=== PATIENT | male | born 1945 | race Caucasian/White ===

== ENCOUNTER 2016-06-22 15:42 | Inpatient (IN) | payer MEDICARE, OTHER ==
[2016-06-22] MEDS ORDERED: NS 0.9% 1000 ML* 2,000 ML IV ONE (16:08)
[2016-06-22 16:28] LABS: Hematocrit 52 % (42-52); Hemoglobin 16.5 g/dl (14.0-18.0); Mean Corpuscular HGB Conc 32 g/dl (31-36); Mean Corpuscular Hemoglobin 30 pg (27-31); Mean Corpuscular Volume 94 fL (80-94); Mean Platelet Volume 11 um3 (7.4-10.4); Red Blood Count 5.54 10^6/ul (4.0-5.4); Red Cell Distribution Width 18 % (10.5-15); White Blood Count 10.9 10^3/ul (3.5-10.8)
[2016-06-22 16:29] LABS: Add Diff/Slide Review? Slide Review Added; Comments Flag Yes
[2016-06-22 16:31] LABS: FIO2 10
[2016-06-22] MEDS ORDERED: Cefepime(*) 2 GM in NS 0.9% 50 ML* 50 ML IVPB ONE (16:31)
[2016-06-22] MEDS ORDERED: Levofloxacin 750 MG IVPREMIX(* 750 MG/150 ML BAG IVPB ONE (16:32)
--- NOTE | 2016-06-22 16:33 | RAD ---
INDICATION: Altered mental status and congestive heart failure COMPARISON: Most recent comparison chest x-ray dated July 30, 2015 TECHNIQUE: Single AP portable view of the chest was obtained. FINDINGS: Image quality is compromised due to the relative inferiority of a portable chest x-ray. There has been interval worsening in the degree of cardiomegaly relative to the previous chest x-ray. There is calcified atherosclerosis overlying the arch of the aorta. There is been interval appearance of diffuse reticulonodular densities symmetrically overlying the bilateral lungs. There is bilateral costophrenic angle blunting. Overlying the mid-level right lung is an oval density that could represent focal pneumonia but more likely represents fluid in the minor fissure. Visualized bones are normal for the patient's age. IMPRESSION: The constellation of chest x-ray findings is most consistent with exacerbation of cardiogenic pulmonary edema with bibasilar pleural effusions and likely fluid in the right minor fissure. Alternative diagnoses include pneumonitis, ARDS or pneumonia.
[2016-06-22] MEDS ORDERED: NS 0.9% 50 ML* 100 ML ONE (16:34)
[2016-06-22 16:35] LABS: Urine Bacteria Absent (Absent); Urine Bilirubin Negative (Negative); Urine Glucose Negative (Negative); Urine Nitrite Negative (Negative)
[2016-06-22 16:36] LABS: PCO2 Arterial 49 mmHg (35-45)
[2016-06-22 16:50] LABS: Add Path Review? YES; Immature Granulocytes 3 % (0-9); Neutrophil % 88 % (38-83); Polychromasia 1+
[2016-06-22 16:51] LABS: Benzodiazepine Urine Screen None Detected (None Detect)
[2016-06-22 16:53] LABS: Ammonia < 10 mol/L (16-53)
[2016-06-22 16:59] LABS: AST 669 U/L (13-39); Albumin 2.5 g/dL (3.2-5.2); Alkaline Phosphatase 220 U/L (34-104); Anion Gap 16 mmol/L (2-11); BUN/Creatinine Ratio 47.8 (8-20); Blood Urea Nitrogen 120 mg/dL (6-24); CO2 Carbon Dioxide 21 mmol/L (22-32); Calcium 8.3 mg/dL (8.6-10.3); Chloride 107 mmol/L (101-111); Creatine Kinase 291 U/L (10-223); EGFR African American 32.9 (>60); EGFR Non-African American 25.6 (>60); Globulin 3.6 g/dL (2-4); Glucose 91 mg/dL (70-100); Magnesium 2.8 mg/dL (1.9-2.7); Potassium 5.5 mmol/L (3.5-5.0); Sodium 144 mmol/L (133-145); Total Protein 6.1 g/dL (6.4-8.9)
[2016-06-22 17:01] LABS: Acetaminophen < 15 mcg/mL; Salicylate < 2.50 mg/dL (<30)
--- NOTE | 2016-06-22 17:01 | RAD ---
Indication: Confusion. CT of the brain was performed without IV contrast. Ventricular structures are midline. No midline shift is noted. The extra-axial spaces are unremarkable. Motion artifact is noted in the posterior fossa. Periventricular lucency is noted consistent with chronic ischemic White matter change. Probable lacunar infarct in the right parietal lobe posteriorly is noted. When compared to previous exam of July 31, 2015 previous identified right sided subdural hematoma is no longer present. IMPRESSION: NO INTRACRANIAL MASS OR HEMORRHAGE. MOTION ARTIFACT LIMITS THE STUDY. CHRONIC ISCHEMIC WHITE MATTER CHANGE WITH EVIDENCE OF OLD LACUNAR INFARCTS.
[2016-06-22 17:05] LABS: TSH (Thyroid Stimulating Horm) 2.65 mcIU/mL (0.34-5.60)
[2016-06-22 17:13] LABS: ALT 775 U/L (7-52)
[2016-06-22 17:44] LABS: B Type Natriuretic Peptide 8068 pg/mL
[2016-06-22] MEDS ORDERED: Acetaminophen SUPP* 325 MG SUPP PR PRN (18:49)
[2016-06-22] MEDS ORDERED: Phytonadione INJ (Adult)* 10 MG/ML 1 ML AMP SUBCUT ONE (19:53)
--- NOTE | 2016-06-22 19:59 | ED ---
Fátima, DoctorEva, scribed for Terence Goodman MD on 06/22/16 at 1556 . Altered Mental Status - HPI Summary HPI Summary: 71 year old male brought to [facility] by EMS after found non-responsive by family members; last seen well 5 days ago. Pt had a subdural hematoma last July and presented with similar symptoms. Level 5 Caveat due to pt's altered mental status. - History Of Current Complaint Stated Complaint: AMS Time Seen by Provider: 06/22/16 15:50 Hx Obtained From: EMS Hx From Patient Unobtainable Due To: Altered Mental Status - level 5 caveat Onset/Duration: Unknown - Allergies/Home Medications Allergies/Adverse Reactions: Allergies Allergy/AdvReac Type Severity Reaction Status Date / Time No Known Allergies Allergy Verified 05/02/15 12:22 Home Medications: Home Medications Phenytoin CAP(*) [Dilantin CAP(*)] 100 mg PO TID 06/22/16 [History Confirmed ] PMH/Surg Hx/FS Hx/Imm Hx Endocrine/Hematology History: Reports: Hx Anticoagulant Therapy - ASA Denies: Hx Diabetes, Hx Anemia Cardiovascular History: Reports: Hx Aneurysm - AAA 3.6 IN SIZE FUSIFORM IN 2008 , Hx Hypercholesterolemia, Hx Hypertension, Hx Peripheral Vascular Disease, Other Cardiovascular Problems/Disorders - RIGHT ENDACARTOMY, CAROTID STENOSIS LEFT 100% BLOCKED Denies: Hx Pacemaker/ICD Musculoskeletal History: Reports: Hx Rheumatoid Arthritis, Other Musculoskeletal History - ra Sensory History: Denies: Hx Contacts or Glasses, Hx Hearing Aid Opthamlomology History: Denies: Hx Contacts or Glasses Neurological History: Reports: Hx Headaches, Hx Seizures, Hx Transient Ischemic Attacks (TIA) Psychiatric History: Denies: Hx Panic Disorder - Surgical History Surgery Procedure, Year, and Place: RIGHT ENDARDECTOMY 3 years ago. RIGHT HIP [id number] Hx Anesthesia Reactions: No - Immunization History Date of Tetanus Vaccine: Unk Date of Influenza Vaccine: None Infectious Disease History: Denies: Traveled Outside the [place] in Last 30 Days - Family History Known Family History: Positive: Unknown - due to level 5 caveat - Social History Lives: Alone Alcohol Use: None Substance Use Type: Reports: None Hx Tobacco Use: Yes Smoking Status (MU): Heavy Every Day Tobacco Smoker Type: Cigarettes Amount Used/How Often: 1/3 ppd Length of Time of Smoking/Using Tobacco: 50 years Have You Smoked in the Last Year: Yes Review of Systems - ROS Summary Review of Systems Summary: ROS limited due to level 5 caveat Negative: Fever All Other Systems Reviewed And Are Negative: No Physical Exam - Summary Physical Exam Summary: LIMITED DUE TO LEVEL 5 CAVEAT General appearance: ill appearing, moderate distress, cachectic HEENT: normocephalic, atraumatic, ears and nose without masses or lesions conjunctivae normal, pupils are equal, mucous membranes very dry Neck: symmetric without masses or tracheal deviation, no thyromegaly Chest: decreased breath sounds, no rhonchi or wheezes, intercostal retraction Cardiovascular: good color, warmth, and capillary refill in extremities (4+), bilateral edema in the feet Skin: no visible rashes, lesions, or ulcers, mottled skin Neurological/Psychiatric: non-responsive to commands Triage Information Reviewed: Yes Vital Signs On Initial Exam: Initial Vitals Temp Pulse Resp BP Pulse Ox 97 F 104 38 143/96 93 06/22/16 15:42 06/22/16 15:42 06/22/16 15:42 06/22/16 15:42 06/22/16 15:42 Vital Signs Reviewed: Yes Completion Of Physical Exam Limited Due To: Level 5 Diagnostics - Vital Signs Vital Signs Temp Pulse Resp BP Pulse Ox 06/22/16 18:00 96.4 F 94 17 129/79 100 06/22/16 17:30 96.6 F 94 20 111/62 100 06/22/16 17:10 96.8 F 95 22 100 06/22/16 17:00 133/78 06/22/16 16:42 97.0 F 20 06/22/16 16:31 96.8 F 96 28 148/88 93 06/22/16 16:12 95.7 F 97 20 87 06/22/16 16:11 141/80 06/22/16 15:42 97 F 104 38 143/96 93 - Laboratory Lab Results: (16:18) Troponin I - 0.60 (16:18) Lactic Acid - 2.1 Result Diagrams: 06/22/16 16:18 06/22/16 16:18 Lab Statement: Any lab studies that have been ordered have been reviewed, and results considered in the medical decision making process. - Radiology CXR Radiology Interpretation Completed By: Radiologist - IMPRESSION: The constellation of chest x-ray findings is most consistent with exacerbation of cardiogenic pulmonary edema with bibasilar pleural effusions and likely fluid in the right minor fissure. Alternative diagnoses include pneumonitis, ARDS or pneumonia. - CT Brain CT CT Interpretation Completed By: Radiologist - IMPRESSION: NO INTRACRANIAL MASS OR HEMORRHAGE. MOTION ARTIFACT LIMITS THE STUDY. CHRONIC ISCHEMIC WHITE MATTER CHANGE WITH EVIDENCE OF OLD LACUNAR INFARCTS. - EKG 16:05 EKG Rhythm: Sinus Tachycardia - 99 bpm EKG Interpretation: Deep T wave inversions in V4-V6, old anterior wall NM, left axis EKG Comparison: Other - Different from EKG taken on 07/29/15 (T-wave inversions are new) Re-Evaluation - Re-Evaluation First Eval Re-Evaluation Time: 16:42 Change: Improved Comment: Pt looks a little better, is slightly more alert and able to answer y/ n questions. Dr. Goodman reviewed pt's CXR and ABG, he is now being taken for a brain CT. Altered Mental Statu Course/Dx - Diagnoses Differential Diagnosis/HQI/PQRI: CVA, Hypoxia, Intracranial Bleed, Medication Reaction, Metabolic Disorder, Sepsis, Other - renal failure, mi, chf, dehydration, Discharge Diagnoses: Altered mental status, Pneumonia, Acute renal failure, Elevated troponin, Dehydration - Provider Notifications Discussed Care Of Patient With: 18:30 - Discussed pt care with Dr. Meyer ( Hospitalist). She agrees to admit pt. - Critical Care Time Critical Care Time: 30-74 min - 45 minutes critical care time Discharge - Discharge Plan Condition: Guarded Disposition: ADMITTED TO [facility] documentation as recorded by the Doctor mcclelland Tahera accurately reflects the service I personally performed and the decisions made by , Terence Goodman MD.
[2016-06-22] MEDS: NS 0.9% 1000 ML* 1,000 ML IV SCH (20:32)
--- NOTE | 2016-06-22 20:37 | RAD ---
Indication: Hepatitis, abdominal aortic aneurysm. Real-time sonography of the abdomen was performed. The liver is 14 cm in length. No focal lesions or intrahepatic ductal dilatation is noted. The left lobe is obscured by overlying gas. A small amount of ascites is noted. The gallbladder demonstrates echogenic material in the dependent portion which may represent nonshadowing calculi or echogenic sludge. No pericholecystic fluid or wall thickening is identified. Common duct measures 3.3 mm. Right kidney measures 8.8 x 3.3 x 4.3 cm with a calculus in the lower pole of the left kidney measuring 2 mm. The left kidney measures 10.0 x 4.8 x 4.9 cm. No hydronephrosis is noted in either kidney. There is limited evaluation of the pancreas. Aorta and inferior vena cava Aortic stent graft is in place. IMPRESSION: Sludge within the gallbladder. A small amount of perihepatic ascites is noted. Aortic stent graft is in place.
[2016-06-22 21:36] LABS: Troponin I 0.93 ng/mL (<0.04)
[2016-06-22 21:38] LABS: Phenytoin < 2.5 mcg/mL (10-20)
[2016-06-22] MEDS ORDERED: Heparin VIAL(*) 5000 UNITS/ML VIAL (FIVE THOUSAND) SUBCUT SCH (22:00)
[2016-06-22 23:25] LABS: Potassium 4.6 mmol/L (3.5-5.0)
--- NOTE | 2016-06-23 00:38 | HP ---
HISTORY AND PHYSICAL: DATE OF ADMISSION: 06/22/16 PRIMARY CARE PROVIDER: Fabio Del Rio MD CHIEF COMPLAINT: Unresponsive. HISTORY OF PRESENT ILLNESS: Mr. Olivo is a 71-year-old male with a history of hypertension, past history of CVAs, history of AAA, past history of subdural hematoma, and seizure disorder, following this who presents to the emergency room after being found unresponsive at home. The patient's sister lives in the same apartment building as the patient. She was away on vacation, but ordinarily check on him routinely. She set up to have another lady checking on the patient daily. Reportedly, the patient has been checked on a daily basis and while he reported not feeling well, he had been in his usual state of health. The patient's temporary caregiver supposedly had been pushing cosby, it was felt that he was dehydrated. This lady went to check on him on the day of admission and he was found not responding. There is a question of whether or not he was found on the floor or on the sofa. The patient in general does not move around well at home per his sister. He has, however, seen Dr. Del Rio most recently in January 2016. Supposedly at that time, he weighed 128 pounds down from 190 previously. I am unable to obtain any further history from the patient or from his sister. PAST MEDICAL HISTORY: 1. Dyslipidemia. 2. Hypertension. 3. Past history of CVA. 4. Tobacco abuse. 5. AAA. 6. History of subdural hematoma, 2016. 7. Seizure disorder following subdural hematoma. PAST SURGICAL HISTORY: 1. CEA. 2. History of pneumothorax. 3. Right hip fracture repair. MEDICATIONS: Are unknown. ALLERGIES: No known drug allergies. FAMILY HISTORY: Unobtainable from the patient. SOCIAL HISTORY: Unobtainable from the patient. REVIEW OF SYSTEMS: Unobtainable from the patient due to him being nonverbal at this time. PHYSICAL EXAMINATION GENERAL: The patient is a well developed, very cachectic, yellow-appearing male , lying in the stretcher, squirming around slightly, moving all 4 extremities, but nonverbal. VITAL SIGNS: Blood pressure 129/79, pulse 96, respirations 17, temp 96.4, and O2 sat 100% on OxyMask at 10 L per minute. HEENT: Pupils are round, extraocular muscles are intact, oropharynx is clear. He does have upper dentures and his oral mucosa is very dry. NECK: I do not appreciate any submandibular, cervical, or supraclavicular adenopathy. Thyroid is not enlarged. No thyroid nodules are noted. PULMONARY: There are coarse breath sounds in all lung somers. CARDIAC: Normal S1, S2. Regular rate and rhythm. I do not appreciate any murmurs. There is 2 to 3+ pitting edema of the bilateral ankles worse on the left compared to the right. ABDOMEN: Bowel sounds are present. Abdomen is scaphoid. He appears to be guarding on palpation of the abdomen in all quadrants. Though he is unable to tell me if it hurts. MUSCULOSKELETAL: The patient has discoloration of his fingers related to smoking. There may be some slight clubbing. There is no cyanosis. SKIN: Warm. It is dry. He has again discoloration of his fingers. He is jaundiced appearing. NEUROLOGIC: Cranial nerves II through XII are difficult to be evaluate though the patient appears to have full extraocular motion. 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 Sensation is unable to be tested. PSYCH: Unable to be tested. DIAGNOSTIC STUDIES/LAB DATA: WBC 10.9, hemoglobin 16.5, hematocrit 52, and platelets 51. INR 2.05. Sodium 144, potassium 5.5, chloride 107, CO2 21, BUN 120, creatinine 2.51, glucose 91, lactic acid 2.1, calcium 8.3, and magnesium 2.8. Bilirubin 5.2, AST 669, ALT 775, alk phos 220, and ammonia less than 10. CPK 291. Troponin 0.60. BNP 8068. Albumin 2.5. TSH 2.65. Urinalysis revealed specific gravity of 1.018, 2+ protein, 1+ blood, present squamous epithelial cells, absent bacteria, negative leukocyte esterase, and negative nitrites. Toxicology reveals urine drug screen to be negative, salicylate less than 2.5, and acetaminophen less than 15. AB.31/49/204. EKG reveals normal sinus rhythm with probable LVH strain pattern. This is, however, dramatically different from July 2015. CT brain no intracranial mass or hemorrhage. Motion artifact limits the study. There is chronic ischemic white matter changes evidenced, old lacunar infarcts. Chest x-ray: Constellation of chest x-ray finding is most consistent with exacerbation of cardiogenic pulmonary edema, bibasilar pleural effusions, and likely fluid in the right minor fissure. Alternative diagnosis include pneumonitis or pneumonia. ASSESSMENT AND PLAN: Mr. Olivo is a 71-year-old male with history of hypertension, past history of cerebrovascular accidents, tobacco abuse, abdominal aortic aneurysm, past history of subdural hematoma, and seizure disorder who presents to the emergency room after being found unresponsive at home and was found to have multisystem organ failure. 1. Altered mental status: The differential diagnosis for this is quite broad. Infectious encephalopathy is potential versus seizure versus cerebrovascular accident. The patient has reportedly improved in the emergency room from the point where he was initially obtunded to the point now where he is able to move around in the bed and when you call his name he looks at you and he can follow simple commands. The patient had a CT of the brain that did not reveal any acute findings. He does not appear to have any gross focal deficits at this point. Seizure is definitely in the differential as he has had a past history of seizure disorder; however, the patient has reportedly not filled his Dilantin since 2016 and it is unclear if this is discontinued or he is just not taking it. An EEG will be ordered and if he fails to improve further, perhaps a Neurology consultation will be useful to determine if an cadd technician should be called in over the weekend to have this done. An MRI can also be considered; however, at this point the patient is too squirming to have an MRI performed. 2. Abnormal chest x-ray: The differential is abnormal chest x-ray includes pneumonitis versus acute respiratory distress syndrome versus infection versus congestive heart failure. While the patient's BNP and chest x-ray appeared to be congestive heart failure, the patient appears to be total body fluid deplete. The patient will receive IV fluid hydration and his respiratory status will need to be monitored closely. He will also be treated with ceftriaxone and azithromycin for possible pneumonia. A followup chest x-ray in the next 1 to 2 days should be considered. 3. Elevated troponin: This could either represent demand ischemia related to his acute illness versus an acute event. It is possible that he had an acute myocardial infarction at some point in the last several days. Follow troponin has been ordered as is a followup EKG. The patient's EKG is different than prior with new ST depression and T-wave inversions in lateral leads; however, this does look like strain pattern. 4. Elevated BNP: Again this makes me believe the patient is in congestive heart failure; however, clinically he does not appear to be. The patient's BNP is quite elevated over 8000. A transthoracic echocardiogram has been ordered though this will not be obtained until this coming Saturday. 5. Acute renal failure: The patient's baseline creatine from 1 year ago is in the 0.8 to 1.15 range. His creatinine currently is 2.51. His BUN is also markedly elevated at 120. His stool occult blood will be obtained as it seems like quite a different between the BUN and the creatinine. The fractional excretion of sodium will be obtained to try to determine the cause of his renal failure. I suspect this is prerenal renal failure though acute tubular necrosis is a potential due to prolonged prerenal state. 6. Hyperkalemia: This is almost definitely secondary to his acute renal failure. The patient is unable to take Kayexalate by mouth. He is being hydrated. A followup electrolyte panel will be obtained this evening at 2200 hours to determine if his potassium has decreased further, if not consideration will need to be had for treating his hyperkalemia. 7. Lactic acidosis: Again I suspect this is secondary to dehydration. A followup lactic acid level will be obtained at 2200 hours. The patient in the emergency room received 1 L fluid though I will go ahead continue normal saline at 100 mL per hour for now though again his respiratory status will need to be monitored very closely due to potential of worsening respiratory status. 8. Hepatitis: The patient's bilirubin, AST, ALT, and alk phos are all elevated. A liver ultrasound has been ordered. It is unclear what has lead to his hepatitis. The patient does not appear to be hypotensive, therefore I do not suspect this to be true shock liver; however, I do question if it maybe related to poor perfusion in the setting of hypovolemia. This could be infectious. I will go ahead and send a hepatitis panel. The patient also has an elevated INR of 2.05 without clear indications to me that he has been on Coumadin. The patient will need followup INR levels. I will go ahead and give vitamin K subcutaneous x1 now. A followup INR will be obtained tomorrow morning. 9. Thrombocytopenia: This is new. The patient's platelet count in July 2015 was normal. This is substantial change. It is unclear if this maybe related to liver disease or some other process. His platelet count will need to be monitored closely. Perhaps an infectious etiology has suppressed his platelet formation. 10. Hypertension: At this point the patient's blood pressure is under fair control, not on any medications. I do not notice home medication list includes , this will just be monitored. 11. Dyslipidemia: For now the diagnosis is noted. Again it is unclear if he is on any medication for this. 12. History of seizure disorder: The patient reportedly have been taking Dilantin in 2016 though a note from the pharmacy text states that per the pharmacy this prescription has not been filled since 2016. 13. Tobacco abuse: The patient shows stigmata of chronic tobacco abuse with discoloration of the fingers. For now, I am going to hold on nicotine patch. 14. DVT prophylaxis: According to the adult Thrombosis Prophylaxis Risk Factor Assessment Guide, the patient has a total risk factor score of 4 making him high risk. The patient's INR is already over 2 and his platelet count is only 51,000. At this time, SCDs alone will be used as DVT prophylaxis. 15. Code status: Per the patient's sister, who, again is on vacation, is full code with a trial of intubation. The patient's daughter does live locally and I have asked the patient's sister to contact the daughter to come to the hospital to discuss his case further. 16. A previous health care proxy form was identified in the computer system. This indicates that Fabby Olivo is the primary health care proxy with Bryan Fowler being the secondary. Again, I have been able to speak to Bryan. I am hopeful that the patient's daughter is able to arrive to the hospital soon. TIME SEEN: Seventy-five minutes was spent admitting this patient. CC: Dr. Del Rio* [id number]/CPS #: [id number]
[2016-06-23 05:46] LABS: Hematocrit 45 % (42-52); Hemoglobin 14.2 g/dl (14.0-18.0); Mean Corpuscular HGB Conc 32 g/dl (31-36); Mean Corpuscular Hemoglobin 30 pg (27-31); Mean Corpuscular Volume 95 fL (80-94); Red Blood Count 4.72 10^6/ul (4.0-5.4); Red Cell Distribution Width 18 % (10.5-15); White Blood Count 8.8 10^3/ul (3.5-10.8)
[2016-06-23 05:59] LABS: Albumin 2.1 g/dL (3.2-5.2); BUN/Creatinine Ratio 54.8 (8-20); Calcium 8.1 mg/dL (8.6-10.3); EGFR African American 40.5 (>60); EGFR Non-African American 31.5 (>60); Globulin 3.2 g/dL (2-4); Potassium 4.4 mmol/L (3.5-5.0); Total Bilirubin 4.2 mg/dL (0.2-1.0); Total Protein 5.3 g/dL (6.4-8.9); Troponin I 1.96 ng/mL (<0.04)
[2016-06-23 06:01] LABS: Add Diff/Slide Review? Slide Review Added; Comments Flag Yes
[2016-06-23] MEDS: NS 0.9% 1000 ML* 1,000 ML IV SCH (07:15)
[2016-06-23 07:36] LABS: Urine Random Sodium < 18 mmol/L
[2016-06-23] MEDS ORDERED: Azithromycin IV(*) 500 MG in NS 0.9% 250 ML* 250 ML IVPB SCH (08:00)
[2016-06-23] MEDS ORDERED: cefTRIAXone VIAL(*) 1,000 MG in NS 0.9% 50 ML* 50 ML IVPB SCH (09:00)
--- NOTE | 2016-06-23 09:14 | PN ---
Subjective Date of Service: 06/23/16 Interval History: Patient admitted yesterday evening w/ subacute change in mental status, and multiple laboratory and imaging abnormalities. Overnight he has continued to be altered. He appears dypneic to nurses, despite normal oxygenation. He is NPO. Family has not visited. He cannot give any history. Family History: Unchanged from Admission Social History: Unchanged from Admission Past Medical History: Unchanged from Admission Objective Active Medications: Acetaminophen (Tylenol Supp*) 325 mg ME Q4H PRN PRN Reason: pain/fever Ceftriaxone Sodium 1,000 mg/ (Sodium Chloride) 50 mls @ 200 mls/hr IVPB DAILY FREDDIE Azithromycin 500 mg/ Sodium (Chloride) 250 mls @ 250 mls/hr IVPB Q24H FREDDIE Last Admin: 06/23/16 08:25 Dose: 250 mls/hr NS at 100 ml/hr Vital Signs 06/22/16 06/22/16 06/22/16 19:00 19:30 20:00 Temperature 35.8 C 35.9 C 35.9 C Pulse Rate 94 97 96 Respiratory 19 20 Rate Blood Pressure 140/80 136/84 (mmHg) O2 Sat by Pulse 98 99 99 Oximetry 06/22/16 06/22/16 06/23/16 20:43 23:20 03:16 Temperature 36.8 C 36.6 C Pulse Rate 98 96 99 Respiratory 20 20 20 Rate Blood Pressure 129/76 124/76 122/68 (mmHg) O2 Sat by Pulse 95 100 100 Oximetry 06/23/16 06/23/16 07:34 07:58 Temperature 35.9 C 36.5 C Pulse Rate 100 Respiratory 22 Rate Blood Pressure 115/66 (mmHg) O2 Sat by Pulse 99 Oximetry Oxygen Devices in Use Now: Venturi Mask Eyes: No Scleral Icterus Ears/Nose/Mouth/Throat: - - poor dentition Neck: Trachea Midline, No Thyroid Enlargement, Masses Respiratory: - - diminished, throughout, prolonged expiratory phase, no wheezes Cardiovascular: NL Sounds; No Murmurs; No JVD, RRR Abdominal: - - scaphoid, soft, tender RLQ, +BS, no masses Lymphatic: No Cervical Adenopathy Extremities: No Edema, - - Hands w/ PIP destruction ?RA Skin: No Rash or Ulcers Neurological: - - attempts to speak when spoken to, attempts to move arms to follow command, tracks with eyes Lines/Tubes/Other Access: Clean, Dry and Intact Peripheral IV Result Diagrams: 06/23/16 05:32 06/23/16 05:32 Additional Lab and Data: Laboratory Tests 06/22/16 06/22/16 06/22/16 16:18 16:30 21:03 INR (Anticoag Therapy) 2.05 H ABG pH 7.31 L ABG pCO2 49 H ABG pO2 204 H ABG HCO3 23.2 Lactic Acid Total Bilirubin AST ALT Alkaline Phosphatase Troponin I 0.93 H* 06/22/16 06/23/16 06/23/16 22:50 00:34 05:32 INR (Anticoag Therapy) 1.63 H ABG pH ABG pCO2 ABG pO2 ABG HCO3 Lactic Acid 1.8 Total Bilirubin AST ALT Alkaline Phosphatase Troponin I 1.46 H* 06/23/16 05:32 INR (Anticoag Therapy) ABG pH ABG pCO2 ABG pO2 ABG HCO3 Lactic Acid Total Bilirubin 4.20 H AST 453 H ALT 626 H Alkaline Phosphatase 169 H Troponin I 1.96 H* Microbiology and Other Data: BC X2 no growth Diagnostic Imaging: U/S gallbladder: sludge, ascites CXR: pulm edema, ?ARDS vs CHF EKG Data: NSR, LVH w/ repol abnormality Assess/Plan/Problems-Billing Assessment: 71 year old man with history of subdural, seizure disorder, vascular disease, AAA repair, admitted w/ altered mental status, elevated troponin, new thrombocytopenia, hepatitis, tachypnea. - Patient Problems (1) Subdural hematoma, post-traumatic Current Visit: No Status: Chronic Priority: Medium Code(s): S06.5X9A - TRAUM SUBDR HEM W LOC OF UNSP DURATION, INIT SNOMED Code(s): 70793028 Comment: Neuro: history of subdural, history of seizure disorder, new onset mental status changes. Differential includes non-convulsive status, stroke, alcohol withdrawal, septic emboli to brain. Will discuss with neurology, repeat head CT, consider EEG, MRI , though trying to follow commands, doubt seizure. Catatonia in differential. (2) Acute coronary syndrome Current Visit: Yes Status: Acute Priority: High Code(s): I24.9 - ACUTE ISCHEMIC HEART DISEASE, UNSPECIFIED SNOMED Code(s): 236709790 Comment: Card:Patient has contining elevation troponin, and altered EKG, LVH , no STEMI. May have demand ischemia, part of sepsis. Will have echo tomorrow, suspect cor pulmonale due to known lung disease, elevated BNP. (3) COPD (chronic obstructive pulmonary disease) Current Visit: Yes Status: Chronic Priority: Medium Code(s): J44.9 - CHRONIC OBSTRUCTIVE PULMONARY DISEASE, UNSPECIFIED SNOMED Code(s): 85484857 Comment: Resp: hypercarbic resp failure possible cause of altered MS. Will recheck ABG. Discussed case with respiratory therapy, considering Atrovent Nebs. Continue O2 supplementation. CXR concerning for early ARDS, clinically patient does not have L-sided CHF. (4) Sepsis Current Visit: Yes Status: Acute Priority: High Comment: ID:Patient met SIRS critera, has multi-organ dysfunction (liver, lungs, heart, heme, kidneys) Currently on IV NS, ceftriaxone, azithromycin. Differential includes endocarditis, w/ septic emboli to brain. Follow blood and urine cultures, and TTE tomorrow. (5) Acute kidney injury Current Visit: Yes Status: Acute Priority: Medium Code(s): N17.9 - ACUTE KIDNEY FAILURE, UNSPECIFIED SNOMED Code(s): 92901735 Comment: Renal: Patient had creatinine well above baseline on admission. This has improved w/ IV normal saline. Will continue crystalloid resucitation. (6) DIC (disseminated intravascular coagulation) Current Visit: Yes Status: Acute Priority: High Code(s): D65 - DISSEMINATED INTRAVASCULAR COAGULATION SNOMED Code(s): 93373046 Comment: Heme: patient was hemoconcentrated on admission, this has improved. New thrombocytopenia and elevated PT/INR concerning for DIC. Will check DIC screen. WBC elevation has resolved. (7) Acute acalculous cholecystitis Current Visit: Yes Status: Acute Priority: High Code(s): K81.0 - ACUTE CHOLECYSTITIS SNOMED Code(s): 87967233 Comment: GI: Patient has sludge in GB, some ascites. Also has long-term weight loss. Pancreatitis can mimic sepsis, and since Lactate normalized, this is more likely. Will check lipase. Patient has tender abdomen, sepsis, no clear source, will CT abdomen/pelvis. Transaminitis trending down, will repeat tomorrow (8) Hypernatremia Current Visit: Yes Status: Acute Priority: High Code(s): E87.0 - HYPEROSMOLALITY AND HYPERNATREMIA SNOMED Code(s): 77586043 Comment: Fluid/electrolytes: Patient developing hypernatremia, will change to D5 1/2NS, correct free water deficit. (9) Rheumatoid arthritis Current Visit: Yes Status: Acute Priority: Medium Code(s): M06.9 - RHEUMATOID ARTHRITIS, UNSPECIFIED SNOMED Code(s): 27221770 Comment: Rheum: patient has elevated RF in past, clear deformities on exam of hands. Will check ESR, as polymyalgia can present with wasting and altered mental status. Status and Disposition: Patient may require transfer to ICU if ARDS develops, or requires BiPAP for hypercarbic resp failure.
[2016-06-23] MEDS: D5W 1/2 NS 1000 ML BAG* 1,000 ML IV SCH ×3 (09:33→19:14)
[2016-06-23 09:37] LABS: PCO2 Arterial 58 mmHg (35-45)
[2016-06-23 09:58] LABS: Fibrinogen 95 mg/dL (110.8-404.3)
[2016-06-23 10:03] LABS: Schistocytes PRESENT
--- NOTE | 2016-06-23 11:14 | RAD ---
CLINICAL HISTORY: Right lower quadrant tenderness, sepsis COMPARISON: August 04, 2015 TECHNIQUE: Multiple contiguous axial CT scans were obtained of the abdomen and pelvis, without intravenous contrast enhancement. Coronal and sagittal multiplanar reformations are submitted for review. Oral contrast was not administered. FINDINGS: The study is limited by the lack of intravenous contrast. This limits evaluation of the solid organs and vasculature. LUNG BASES: There are small bilateral effusions with bibasilar consolidation. There is cardiomegaly. Pleural calcification is noted on the right. LIVER: The liver is normal in shape, size, contour, and attenuation. BILE DUCTS: There is no intrahepatic or extrahepatic biliary dilatation. GALLBLADDER: The gallbladder is normal, without pericholecystic inflammatory change. PANCREAS: The pancreas is normal, without mass or ductal dilatation. SPLEEN: Normal in size and appearance. UPPER GI TRACT: Evaluation of the gastrointestinal tract is limited by incomplete gastric distention. The upper GI tract is unremarkable. SMALL BOWEL AND MESENTERY: The small bowel is normal in contour, course, and caliber. There is no obstruction or dilatation. COLON: There are multiple diverticula of the sigmoid colon. There is no pericolonic inflammatory change. The appendix is not clearly visualized. ADRENALS: Normal bilaterally. KIDNEYS: The kidneys are normal in shape, size, contour, and axis. There is no hydronephrosis or nephrolithiasis. BLADDER: The bladder is collapsed rounded Perez catheter. PELVIC ORGANS: Evaluation of the pelvic organs is limited by streak artifact from a right hip prosthesis. AORTA: There is atherosclerosis of the abdominal aorta. The patient is status post aortic stent graft. IVC: Unremarkable LYMPH NODES: There is no lymphadenopathy by size criteria. ABDOMINAL WALL: There is no evidence for abdominal wall hernia. BONES AND SOFT TISSUES: Mild degenerative changes are noted. The patient is status post right hip arthroplasty. OTHER: There is a trace amount of ascites. IMPRESSION: 1. BIBASILAR CONSOLIDATION WITH SMALL BILATERAL PLEURAL EFFUSIONS. 2. HEPATOMEGALY. 3. DIVERTICULOSIS. 4. TRACE AMOUNT OF ASCITES
--- NOTE | 2016-06-23 11:18 | RAD ---
HISTORY: Altered mental status COMPARISONS: June 22, 2016 TECHNIQUE: Multiple contiguous axial CT scans were obtained of the head without intravenous contrast. FINDINGS: HEMORRHAGE/INFARCT: There is no hemorrhage or acute infarct. MASSES/SHIFT: There is no mass or shift. EXTRA-AXIAL SPACES: There are no extra-axial fluid collections. SULCI AND VENTRICLES: The sulci and ventricles are normal in size and position for the patient's stated age. CEREBRUM: There is hypoattenuation of the periventricular and subcortical white matter. There is a chronic lacunar infarct of the right davidson radiata BRAINSTEM: There are no focal parenchymal abnormalities. CEREBELLUM: There are no focal parenchymal abnormalities. VESSELS: The vessels are grossly normal. PARANASAL SINUSES: The paranasal sinuses are clear. ORBITS: The orbits are unremarkable. BONES AND SOFT TISSUE: No bone or soft tissue abnormalities are noted. OTHER: None IMPRESSION: NO ACUTE INTRACRANIAL PATHOLOGY. CHRONIC SMALL VESSEL ISCHEMIC CHANGES
[2016-06-23 16:08] VITALS: BP 113/58
--- NOTE | 2016-06-23 17:02 | CONSULT ---
Consult Consult: CRITICAL CARE MEDICINE DATE: 06/23/16 TIME: 1530 REFERRING PROVIDER: Raz REASON/CHIEF COMPLAINT: MSOF HISTORY OF PRESENT ILLNESS: 71 M admitted yesterday with confusion and "unresponsive" at home. Following some commands on admission. Considerable weight lost noted. Dx and supportive care. Non-improving status on medical floor today and ICU consulted given msof and concern for dic. History otherwise limited as he lives alone. Family states he was at the best he has been about 3 weeks ago. REVIEW OF SYSTEMS: As per HPI. Limited sec to acuity PAST MEDICAL HISTORY: As per HPI. MEDICATIONS: Reviewed. ALLERGIES: Reviewed. SOCIAL HISTORY: Reviewed. FAMILY HISTORY: Noncontributory at present. PHYSICAL EXAM: thin, wasting Vital Signs: Reviewed. Neurologic: obtunded. response to stimuli with eye opening. not following commands. HEENT: icteric. reactive. Cardiovascular: tachy. Respiratory: mild prolong exp phase, but without adequate compensation. mild rhonchi Abdomen: thin, soft, seems a little uncomfortable to palpation. Extremities: thin, frail. Access: piv LABS: Reviewed. IMAGING: Reviewed. Cts reviewed MEDICATIONS: Reviewed. ASSESSMENT/PLAN: 71 M MSOF Acute encephalopathy - multifactorial Acute hypoxic and hypercarbic respiratory failure - unable to compensate Type II NSTEMI Acute liver failure - although glucose was holding at the moment Severe prot malnutrition - Acute renal failure - with BUN out of proportion to Cr, although he has little muscle mass Severe thrombocytopenia DIC Only linking diagnosis I can make with all these entities is TTP / HUS. Would take too long to confirm with ADAMTS 13. Only tx would be urgent pheresis. Would need to transfer. Would need airway secured for transfer. Would anticipate at least 5 days of pheresis needs and likely require MV throughout that process. Already with severe wasting and poor reserve. Renal function may fail further with potential HD needs. Given his overall dynamics and already deep into this MSOF process and now DIC numbers, we discussed openly with family: Daughter Fabby (proxy), his sister present and her kids, other sister via phone. They all express understanding of his working diagnosis and what plans would be sought if they believed he would want them as he no longer holds capacity. They all agree for comofrt care alone with support with oxygen, morphine as needed, and other medications as deemed fit by treating services to keep him comfortable and forgo further potential harmful interventions. Molst reflective of conversation. DNR, DNI, comfort. There are further family members coming in from out of town and they hope pt can be supported comfortably and hold on for their arrival. Maintain comfort care on medical floor. D/w Dr. Crandall. Critical Care Time: 50min FManuel Lund DO
[2016-06-23] MEDS ORDERED: Morphine INJ* 2 MG/ML 1 ML SYRINGE IV PRN (17:39)
[2016-06-24] MEDS: D5W 1/2 NS 1000 ML BAG* 1,000 ML IV SCH (03:07)
--- NOTE | 2016-06-25 03:23 | DS ---
CC: Dr. 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 SECONDARY DIAGNOSIS: 1. Chronic obstructive pulmonary disease. 2. History of subdural 2016 with seizure disorder complication. 3. Abdominal aortic aneurysm, status post endovascular repair. 4. Tobacco abuse. 5. History of stroke. 6. Hypertension. 7. Hyperlipidemia. 8. Rheumatoid arthritis. 9. Peripheral vascular disease with carotid endarterectomy in the past. HOSPITAL COURSE: The patient was admitted after being found confused and unresponsive at his residence. The patient had had a significant weight loss in the range of 20 to 30 pounds in the month prior to admission. Little history was obtainable because he lives alone and his family was not close. The patient had a syndrome including multiorgan dysfunction characterized by liver dysfunction with AST, ALT in the 450 to 630 range. Alkaline phosphatase elevated at 169. Normal ammonia level. His albumin level was 2.1. He had coagulation abnormalities with an INR of 2.05 on admission that fell to 1.55 with vitamin K supplementation. His PTT was 51.6. DIC screen showed a platelet count of 36, fibrinogen of 95, and a D- dimer greater than 1050. He was presented with a white of 10.9 where it fell to 8.8 on the day after admission. His hematocrit was 52% on admission and 45% on the next day. Platelets fell from 51 on admission to 36 on the next day. He had hypercarbic and hypoxic respiratory failure with a blood gas showing pH of 7.23, pCO2 of 58 , pO2 128 on 4 L of oxygen mask. He had cardiac inflammation/ischemia with troponin at 1.46, elevated to 2.94 at noon on the . EKG showed LVH, left atrial enlargement, sinus tachycardia. Head CT showed atrophy with no stroke or subdural. Abdominal ultrasound showed sludge in the gallbladder and ascites. Abdominal CT without contrast showed mild ascites. No focal masses, bibasilar consolidation of the lungs as well as some small bilateral pleural effusions. Hepatomegaly was also seen. Due to the patient's proven DIC and suspected multisystem organ failure including respiratory failure, consultation was obtained from Dr. Lund of intensive care unit. He felt the patient had TTP/HUS as a unifying diagnosis. Peripheral smear showed rare schistocytes despite lack of anemia. I discussed the case verbally with Dr. Harrington, Hematology and he was not ready to make the diagnosis of TTP-HUS over the telephone. In any case, discussion was made with the family about this devastating diagnosis and the treatment plan which would include a transfer to tertiary care center and exchange transfusion. It was felt that the patient had no metabolic reserves and no pulmonary reserves to allow survival of this treatment. The family including the daughter Fabby being his health proxy elected to discontinue aggressive treatments and focus on comfort care. We stopped doing vital signs frequently. We stopped lab testing and only continued intravenous fluids and morphine as needed. The patient peacefully at 9:50 a.m. on 06/24/16. The family was in attendance. They are deciding about home. They are deciding about an autopsy. I suggested an autopsy because he of unknown causes essentially and I suspected malignancy that is underlying the DIC and TTP. [id number]/CPS #: [id number] MTDD
== END 2016-06-24 09:45 | disposition expired | DRG 545 ==
LOC: ED 15:42 → MEDTELE 18:47
PROVIDERS: ADMIT Hospitalist; ATTEND Internal Medicine
DX: M31.1 Thrombotic microangiopathy (principal); D65 Disseminated intravascular coagulation [defibrination syndrome]; I21.4 Non-ST elevation (NSTEMI) myocardial infarction; K72.00 Acute and subacute hepatic failure without coma; J96.01 Acute respiratory failure with hypoxia; J96.02 Acute respiratory failure with hypercapnia; G93.40 Encephalopathy, unspecified; E43 Unspecified severe protein-calorie malnutrition; J90 Pleural effusion, not elsewhere classified; D59.3 Hemolytic-uremic syndrome; R18.8 Other ascites; R64 Cachexia; N17.9 Acute kidney failure, unspecified; E87.2 Acidosis; K81.0 Acute cholecystitis; E87.0 Hyperosmolality and hypernatremia; Z68.1 Body mass index [BMI] 19.9 or less, adult; E78.5 Hyperlipidemia, unspecified; I10 Essential (primary) hypertension; G40.909 Epilepsy, unspecified, not intractable, without status epilepticus; R79.89 Other specified abnormal findings of blood chemistry; E87.5 Hyperkalemia; D69.6 Thrombocytopenia, unspecified; K75.9 Inflammatory liver disease, unspecified; E78.00 Pure hypercholesterolemia, unspecified; I73.9 Peripheral vascular disease, unspecified; M06.9 Rheumatoid arthritis, unspecified; I65.22 Occlusion and stenosis of left carotid artery; F17.210 Nicotine dependence, cigarettes, uncomplicated; E86.0 Dehydration; J44.9 Chronic obstructive pulmonary disease, unspecified; Z51.5 Encounter for palliative care; Z66 Do not resuscitate; R16.0 Hepatomegaly, not elsewhere classified; Z86.73 Personal history of transient ischemic attack (TIA), and cerebral infarction without residual deficits
CPT/HCPCS: 36415; 36600; 70450; 71010; 74176; 76700; 80051; 80053; 80074; 80185; 80307; 80329; 81003; 81015; 82140; 82150; 82550; 82570; 82803; 83605; 83615; 83690; 83735; 83880; 84300; 84443; 84484; 85025; 85049; 85060; 85362; 85384; 85610; 85730; 87040; 93005; 94760; 99406; G0480; J0456; J0692; J0696; J2270; J3430